=== PATIENT | female | born 1985 | race Caucasian/White ===

== ENCOUNTER 2021-01-28 14:19 | Emergency (ER) | payer BC, OTHER ==
[~2021-01-28] VITALS: Ht 165.1 cm; Wt 82.0 kg
[2021-01-28 14:32] VITALS: BP 126/52
== END 2021-01-28 20:03 | disposition left against medical advice (07) ==
LOC: ER 14:19
DX: Z53.21 Procedure and treatment not carried out due to patient leaving prior to being seen by health care provider (principal)